=== PATIENT | male | born 1985 | race African-American/Black ===

== ENCOUNTER 2016-09-11 10:17 | Emergency (ER) | payer MEDICAID ==
[~2016-09-11] VITALS: Ht 180.3 cm; Wt 80.0 kg
[2016-09-11 10:18] VITALS: BP 155/90; PULSE 132; RESP 18; TEMP 97.6; O2SAT 99
[2016-09-11 10:40] VITALS: BP 158/101
[2016-09-11] MEDS ORDERED: LOPE2CAP PO (10:58)
[2016-09-11] MEDS ORDERED: ZOFR4TAB3 SL (10:58)
--- NOTE | 2016-09-11 10:58 | PD ---
HPI Chief Complaint: GI Complaint Time Seen by Provider: 10:39 Travel History International Travel<30 days: No Contact w/Intl Traveler<30days: No Traveled to known affect area: No History of Present Illness HPI This is a 30-year-old man who presents to the emergency department complaining of some abdominal cramping, nausea with a little bit of vomiting, and some loose stools. He states symptoms been going on for about a week or so. Multiple family members at home of been sick with similar symptoms. He has multiple young children in the house. He otherwise had been feeling generally well. Is no history of significant abdominal problems. Has otherwise been feeling generally well and healthy. Denies any fevers or chills. Denies any bloody diarrhea. Denies any severe abdominal pain. History Past Medical History Medical History: Denies Significant Hx Past Surgical History Surgical History: No Previous Surgery Social History Alcohol Use: No Tobacco Use: No Allergies-Medications (Allergen,Severity, Reaction): Coded Allergies: No Known Allergies (Unverified , 09/11/16) Reported Meds & Prescriptions Reported Meds & Active Scripts Active Loperamide (Loperamide HCl) 2 Mg Cap 2 Mg PO DIRECTED PRN One capsule after each loose stool. Not to exceed 8 capsules per day. Zofran Odt (Ondansetron Odt) 4 Mg Tab 4 Mg SL Q8HR PRN May substitute non-ODT form. Review of Systems Except as stated in HPI: all other systems reviewed are Neg Physical Exam Narrative GENERAL: Well-appearing 30-year-old man, no acute distress. SKIN: Focused skin assessment warm/dry. CARDIOVASCULAR: Regular rate and rhythm. No murmur appreciated. RESPIRATORY: No accessory muscle use. Clear to auscultation. Breath sounds equal bilaterally. GASTROINTESTINAL: Abdomen soft, non-tender, nondistended. Hepatic and splenic margins not palpable. MUSCULOSKELETAL: No obvious deformities. No clubbing. No cyanosis. No edema. NEUROLOGICAL: Awake and alert. No obvious cranial nerve deficits. Motor grossly within normal limits. Normal speech. PSYCHIATRIC: Appropriate mood and affect; insight and judgment normal. Data Data Last Documented VS Vital Signs Date Time Temp Pulse Resp B/P Pulse Ox O2 Delivery O2 Flow Rate FiO2 09/11/16 10:40 158/101 09/11/16 10:18 97.6 132 18 99 Room Air Orders Complete Blood Count With Diff (09/11/16 10:49) Comprehensive Metabolic Panel (09/11/16 10:49) Lipase (09/11/16 10:49) Ondansetron Inj (Zofran Inj) (09/11/16 11:00) Iv Access Insert/Monitor (09/11/16 10:49) Ondansetron Odt (Zofran Odt) (09/11/16 11:15) Labs Laboratory Tests Test 09/11/16 12:15 White Blood Count 9.7 TH/MM3 Red Blood Count 4.96 MIL/MM3 Hemoglobin 14.8 GM/DL Hematocrit 43.6 % Mean Corpuscular Volume 88.0 FL Mean Corpuscular Hemoglobin 29.8 PG Mean Corpuscular Hemoglobin 33.8 % Concent Red Cell Distribution Width 13.3 % Platelet Count 188 TH/MM3 Mean Platelet Volume 9.3 FL Neutrophils (%) (Auto) 79.9 % Lymphocytes (%) (Auto) 12.5 % Monocytes (%) (Auto) 6.9 % Eosinophils (%) (Auto) 0.3 % Basophils (%) (Auto) 0.4 % Neutrophils # (Auto) 7.7 TH/MM3 Lymphocytes # (Auto) 1.2 TH/MM3 Monocytes # (Auto) 0.7 TH/MM3 Eosinophils # (Auto) 0.0 TH/MM3 Basophils # (Auto) 0.0 TH/MM3 CBC Comment DIFF FINAL Differential Comment Sodium Level 136 MEQ/L Potassium Level 3.7 MEQ/L Chloride Level 102 MEQ/L Carbon Dioxide Level 28.1 MEQ/L Anion Gap 6 MEQ/L Blood Urea Nitrogen 5 MG/DL Creatinine 1.05 MG/DL Estimat Glomerular Filtration 101 ML/MIN Rate Random Glucose 109 MG/DL Calcium Level 9.9 MG/DL Total Bilirubin 0.9 MG/DL Aspartate Amino Transf 11 U/L (AST/SGOT) Alanine Aminotransferase 15 U/L (ALT/SGPT) Alkaline Phosphatase 62 U/L Total Protein 8.5 GM/DL Albumin 4.4 GM/DL Lipase 63 U/L [facility] Medical Decision Making Medical Screen Exam Complete: Yes Emergency Medical Condition: Yes Interpretation(s) Labs are unremarkable. Differential Diagnosis Gastroenteritis, diarrhea, food borne illness, other Narrative Course Medical decision making INITIAL: Is a 30-year-old man who presents to the emergency department complaining of GI upset for about a week. He looks well. Is benign abdominal exam. His multiple sick family member suggesting other foodborne illness or infectious gastroenteritis. We'll recommend supportive treatment. Diagnosis Primary Impression: Nausea vomiting and diarrhea Additional Instructions: Take Zofran if needed for nausea or vomiting. Take loperamide as needed for diarrhea. Return to the emergency department for any worsening abdominal pain, bloody diarrhea, high fevers, or any other new or worsening symptoms. Med/Other Pt SpecificInfo: Prescription(s) given Scripts Loperamide 2 Mg Cap2 Mg PO DIRECTED PRN (DIARRHEA) #8 CAP Ref 0 One capsule after each loose stool. Not to exceed 8 capsules per day. Prov:Alan Stewart MD 09/11/16 Ondansetron Odt (Zofran Odt)4 Mg Tab4 Mg SL Q8HR PRN (Nausea/Vomiting) #15 TAB May substitute non-ODT form. Prov:Alan Stewart MD 09/11/16 Disposition: 01 DISCHARGE HOME Condition: Stable Alan Stewart MD Sep 11, 2016 10:58
[2016-09-11] MEDS ORDERED: ONDANSETRON HCL 4 MG/2 ML VIAL IV PUSH ONE (11:00)
[2016-09-11] MEDS ORDERED: ONDANSETRON ODT 4 MG TAB PO ONE (11:15)
[2016-09-11 12:39] LABS: AUTOMATED NEUTROPHIL # 7.7 TH/MM3 (1.8-7.7); BASOPHIL % 0.4 % (0.0-2.0); EOSINOPHIL % 0.3 % (0.0-4.0); HEMATOCRIT 43.6 % (39.0-51.0); HEMO FLAGS DIFF FINAL; LYMPH % 12.5 % (9.0-44.0); LYMPHOCYTE # 1.2 TH/MM3 (1.0-4.8); MEAN CORPUSCULAR HEMOGLOBIN 29.8 PG (27.0-34.0); MEAN CORPUSCULAR HGB CONC 33.8 % (32.0-36.0); MONO % 6.9 % (0.0-8.0); NEUT % 79.9 % (16.0-70.0); PLATELET COUNT 188 TH/MM3 (150-450); RED BLOOD COUNT 4.96 MIL/MM3 (4.50-5.90); RED CELL DISTRIBUTION WIDTH 13.3 % (11.6-17.2); WHITE BLOOD COUNT 9.7 TH/MM3 (4.0-11.0)
[2016-09-11 12:55] LABS: ANION GAP 6 MEQ/L (5-15); AST (GOT) 11 U/L (15-37); BICARBONATE 28.1 MEQ/L (21.0-32.0); BLOOD UREA NITROGEN 5 MG/DL (7-18); CHLORIDE 102 MEQ/L (98-107); GLOMERULAR FILTRATION RATE 101 ML/MIN (>89); SODIUM (NA) 136 MEQ/L (136-145)
[2016-09-11 12:58] LABS: ALKALINE PHOSPHATASE 62 U/L (45-117); ALT (GPT) 15 U/L (12-78)
[2016-09-11 13:09] LABS: POTASSIUM 3.7 MEQ/L (3.5-5.1); TOTAL BILIRUBIN ADULT 0.9 MG/DL (0.2-1.0)
== END 2016-09-11 13:50 | disposition home or self-care (01) ==
LOC: NEPD 10:17
DX: R11.2 Nausea with vomiting, unspecified (principal); R19.7 Diarrhea, unspecified; Z79.899 Other long term (current) drug therapy
CPT/HCPCS: 80053; 83690; 85025; 99284